=== PATIENT | male | born 1945 | race Caucasian/White ===

== ENCOUNTER 2021-07-24 19:48 | Inpatient (IN) | payer OTHER, MEDICAID ==
[~2021-07-24] VITALS: Ht 157.5 cm; Wt 60.8 kg
[~2021-07-24 19:48] MED LIST: IBU800T; PHEN-250; TYLENOL WITH COD; [UNRECOGNIZED DRUG - OTHER]
[2021-07-24 23:36] LABS: Eosinophils # (auto) 0 10 ^3/uL (0-0.8); Lymphocytes # (auto) 0.4 10 ^3/uL (0.4-5.4); Monocytes # (auto) 0.6 10 ^3/uL (0-1.3); Neutrophils # (auto) 5.8 10 ^3/uL (1.6-8.6); White Blood Cell 6.8 10^3/uL (4.4-10.8)
[2021-07-24 23:38] LABS: Basophils # (auto) 0.1 10 ^3/uL (0-0.2); Basophils % (auto) 0.7 % (0.0-2.0); Eosinophils % (auto) 0.3 % (0.0-7.0); Hematocrit 31.8 % (41.0-53.0); Lymphocytes % (auto) 5.6 % (10.0-50.0); Mean Corpuscular Hemoglobin 37.7 pg (28.0-32.0); Mean Corpuscular Hgb Conc. 34.5 g/dL (32.0-36.0); Mean Corpuscular Volume 109.5 fL (80.0-100.0); Monocytes % (auto) 8.8 % (0.0-12.0); Neutrophils % (auto) 84.6 % (37.0-80.0); Nucleated Red Blood Cells % 0.2 %; Red Cell Distribution Width 16.7 % (11.8-14.3)
[2021-07-24 23:57] LABS: Albumin 3.4 g/dL (3.4-5.0); Anion Gap 4 (5-15); BUN/Creatinine Ratio 20.4; Blood Alcohol < 3.0 mg/dL (0-5); Blood Urea Nitrogen 23 mg/dL (7-18); Calcium 8.2 mg/dL (8.5-10.1); Carbon Dioxide 35 mmol/L (21-32); Chloride 105 mmol/L (98-107); GFR African American 81 mL/min; GFR Non-African American 67 mL/min; Glucose 121 mg/dL (74-106); Magnesium 2.7 mg/dL (1.6-2.6); Potassium 5.4 mmol/L (3.5-5.1); Sodium 144 mmol/L (136-145)
[2021-07-25] VITALS (9 sets, daily range): BP systolic 76–130; BP diastolic 36–91
[2021-07-25] LABS: Alanine Aminotransferase 19 U/L (16-61); Alkaline Phosphatase 172 U/L (45-117); Aspartate Aminotransferase 23 U/L (15-37); Bilirubin, Total 0.2 mg/dL (0.2-1.0); Total Protein 7.4 g/dL (6.4-8.2)
[2021-07-25] MEDS ORDERED: ALBUTEROL SULF 2.5 MG/0.5ML(0.5%) NEB SOLN NEB ONE (00:30)
[2021-07-25] MEDS ORDERED: IPRATROPIUM BROM 0.5 MG/2.5ML INH SOL NEB ONE (00:30)
[2021-07-25] MEDS ORDERED: levoFLOXacin 750MG 150 ML IV ONE (00:30)
[2021-07-25] MEDS ORDERED: CALCIUM GLUC 1,000mg/50ml-NS 50 ML IV ONE (00:30)
[2021-07-25] MEDS ORDERED: FUROSEMIDE INJECTION 10 ML ONE (01:29)
[2021-07-25] MEDS ORDERED: FUROSEMIDE 100 MG/10ML VIAL IV ONE (01:30)
[2021-07-25] MEDS ORDERED: ONDANSETRON HCL 4 MG/2 ML VIAL IV PRN (02:00)
[2021-07-25] MEDS ORDERED: NITROGLYCERIN 0.4 MG SL TAB SL PRN (02:00)
[2021-07-25] MEDS ORDERED: MORPHINE SULFATE INJECTION 2 MG/ML SYRG IV PRN (02:00)
[2021-07-25] MEDS ORDERED: SODIUM ZIRCONIUM CYCL 10 GM PAK PO ONE (02:00)
[2021-07-25] MEDS ORDERED: ACETAMINOPHEN 325 MG TAB PO PRN (02:00)
[2021-07-25 04:13] LABS: Urine Bacteria FEW /hpf (None Seen); Urine Blood 1+ /uL (Negative); Urine Budding Yeast OCCASIONAL /hpf (None Seen); Urine Hyaline Cast MOD /lpf (0 - 2); Urine Mucus FEW (None Seen); Urine Specific Gravity 1.017 (1.001-1.035); Urine WBC 115 /hpf (0 - 3)
[2021-07-25 04:39] LABS: Alcohol, Urine < 3.0 mg/dL (0-10); Amphetamine Screen, Urine NEGATIVE (NEGATIVE); Barbiturate Scree,Urine NEGATIVE (NEGATIVE); Benzodiazephine Screen, Urine NEGATIVE (NEGATIVE); Cannabinoid Screen, Urine NEGATIVE (NEGATIVE); Cocaine Screen, Urine NEGATIVE (NEGATIVE); Opiate Scree,Urine NEGATIVE (NEGATIVE); Phencyclidine Screen, Urine NEGATIVE (NEGATIVE)
[2021-07-25] MEDS: FUROSEMIDE 20 MG/2 ML VIAL IV SCH ×2 (05:20→18:00)
[2021-07-25] MEDS: ALBUTEROL SULF 2.5 MG/0.5ML(0.5%) NEB SOLN NEB SCH ×3 (07:08→19:19)
[2021-07-25] MEDS: IPRATROPIUM BROM 0.5 MG/2.5ML INH SOL NEB PRN ×4 (07:08→19:19)
[2021-07-25] MEDS ORDERED: cefTRIAXone 1GM/50ML D5W 50 ML IV SCH (09:00)
[2021-07-25] MEDS ORDERED: HCTZ 25 MG TAB PO SCH (10:00)
[2021-07-25] MEDS ORDERED: AZITHROMYCIN 500MG/ 250ML 250 ML IV SCH (10:00)
[2021-07-25] MEDS: LORazepam 2MG/ML-1ML VIAL IV PRN ×2 (12:09→21:00)
[2021-07-25] MEDS: ASPirin 81 mg TAB PO SCH (12:09)
[2021-07-25] MEDS: CLOPIDOGREL BISULFATE 75 MG TAB PO SCH (12:10)
[2021-07-25] MEDS: ENOXAPARIN SOD 40 MG/0.4 ML SYRINGE SC SCH (12:11)
[2021-07-25] MEDS: PANTOPRAZOLE 40 MG TAB PO SCH (12:11)
[2021-07-25] MEDS: DOBUTamine 1000MCG/ML 250 ML IV SCH (18:47)
[2021-07-25] MEDS: ATORVASTATIN 20 MG TAB PO SCH (21:00)
[2021-07-25] MEDS ORDERED: methylPREDNISolone SOD SUCC 40 MG/ML VL IV ONE (21:45)
[2021-07-26] VITALS (7 sets, daily range): BP systolic 76–146; BP diastolic 44–71
[2021-07-26 05:01] LABS: Basophils # (auto) 0 10 ^3/uL (0-0.2); Eosinophils # (auto) 0 10 ^3/uL (0-0.8); Hematocrit 27.2 % (41.0-53.0); Hemoglobin 9.7 g/dL (13.5-17.5); Lymphocytes # (auto) 0.2 10 ^3/uL (0.4-5.4); Lymphocytes % (auto) 1.8 % (10.0-50.0); Mean Corpuscular Hemoglobin 39.1 pg (28.0-32.0); Mean Corpuscular Hgb Conc. 35.6 g/dL (32.0-36.0); Mean Corpuscular Volume 109.9 fL (80.0-100.0); Monocytes # (auto) 0.8 10 ^3/uL (0-1.3); Monocytes % (auto) 7.9 % (0.0-12.0); Neutrophils # (auto) 9.3 10 ^3/uL (1.6-8.6); Neutrophils % (auto) 90.3 % (37.0-80.0); Red Blood Cells 2.48 10^6/uL (4.5-5.90); Red Cell Distribution Width 16.7 % (11.8-14.3); White Blood Cell 10.3 10^3/uL (4.4-10.8)
[2021-07-26] MEDS: ALBUTEROL SULF 2.5 MG/0.5ML(0.5%) NEB SOLN NEB SCH ×2 (05:57→12:34)
[2021-07-26] MEDS: FUROSEMIDE 20 MG/2 ML VIAL IV SCH ×2 (06:00→18:39)
[2021-07-26] MEDS: DOBUTamine 1000MCG/ML 250 ML IV SCH ×2 (06:27→19:29)
[2021-07-26] MEDS: ASPirin 81 mg TAB PO SCH (09:52)
[2021-07-26] MEDS: CLOPIDOGREL BISULFATE 75 MG TAB PO SCH (09:52)
[2021-07-26] MEDS: ENOXAPARIN SOD 40 MG/0.4 ML SYRINGE SC SCH (09:52)
[2021-07-26] MEDS: PANTOPRAZOLE 40 MG TAB PO SCH (09:52)
[2021-07-26] MEDS: methylPREDNISolone SOD SUCC 40 MG/ML VL IV SCH (09:52)
[2021-07-26 11:19] LABS: Anion Gap 3 (5-15); BUN/Creatinine Ratio 16.9; Blood Urea Nitrogen 43 mg/dL (7-18); Calcium 7.5 mg/dL (8.5-10.1); Carbon Dioxide 35 mmol/L (21-32); Chloride 103 mmol/L (98-107); GFR African American 32 mL/min; GFR Non-African American 26 mL/min; Glucose 119 mg/dL (74-106); Potassium 4.9 mmol/L (3.5-5.1); Sodium 141 mmol/L (136-145)
[2021-07-26] MEDS ORDERED: TPN PER PHARMACY 0 ML IV SCH (11:30)
[2021-07-26 13:50] LABS: Magnesium 2.1 mg/dL (1.6-2.6); Phosphorus 5.2 mg/dL (2.5-4.90)
[2021-07-26] MEDS ORDERED: DEXTROSE (50%) 50ML SYRG IV SCH (14:15)
[2021-07-26] MEDS ORDERED: LORazepam 2MG/ML-1ML VIAL IV PRN (15:30)
[2021-07-26] MEDS: ACCU-CHEK COMFORT CURVE STRIP VI SCH (18:00)
[2021-07-26] MEDS: InsuLIN REG 1unit/0.01ml Soln (100units/ml) SC SCH (18:00)
[2021-07-26] MEDS ORDERED: SODIUM CHLORIDE 0.9% 1,000 ML IV ONE (19:45)
[2021-07-26] MEDS ORDERED: PIPERACILLIN-TAZOB 2.25GM 50 ML IV ONE (20:00)
[2021-07-26] MEDS: AMINO ACID INFUSION IN D10W 1,000 ML IV NR (20:17)
[2021-07-26] MEDS: ATORVASTATIN 20 MG TAB PO SCH (22:25)
[2021-07-27] MEDS: InsuLIN REG 1unit/0.01ml Soln (100units/ml) SC SCH ×4 (00:33→17:34)
[2021-07-27] MEDS: PIPERACILLIN-TAZOB 2.25GM 50 ML IV SCH ×4 (02:09→20:38)
[2021-07-27 05:00] VITALS: BP 123/47
[2021-07-27] MEDS: ACCU-CHEK COMFORT CURVE STRIP VI SCH ×4 (06:04→17:34)
[2021-07-27 06:29] LABS: Albumin 2.3 g/dL (3.4-5.0); BUN/Creatinine Ratio 21.6; Calcium 7.4 mg/dL (8.5-10.1); Magnesium 2.2 mg/dL (1.6-2.6); Potassium 4.1 mmol/L (3.5-5.1)
[2021-07-27 06:32] LABS: Bilirubin, Total 0.3 mg/dL (0.2-1.0); Total Protein 5.7 g/dL (6.4-8.2)
[2021-07-27] MEDS: ALBUTEROL SULF 2.5 MG/0.5ML(0.5%) NEB SOLN NEB SCH ×3 (06:38→18:14)
[2021-07-27 09:00] VITALS: BP 110/56
[2021-07-27] MEDS: methylPREDNISolone SOD SUCC 40 MG/ML VL IV SCH (10:16)
[2021-07-27] MEDS: ENOXAPARIN SOD 30 MG/0.3 ML SYRINGE SC SCH (10:16)
[2021-07-27] MEDS: LINEZOLID 600MG/300ML 300 ML IV SCH ×2 (11:14→22:58)
[2021-07-27 13:00] VITALS: BP 121/57
[2021-07-27] MEDS: FUROSEMIDE 20 MG/2 ML VIAL IV SCH ×2 (14:30→18:00)
[2021-07-27 17:00] VITALS: BP 114/40
[2021-07-27] MEDS ORDERED: FUROSEMIDE 20 MG/2 ML VIAL IV SCH (18:00)
[2021-07-27] MEDS: IPRATROPIUM BROM 0.5 MG/2.5ML INH SOL NEB PRN (18:16)
[2021-07-27] MEDS: AMINO ACID INFUSION IN D10W 1,000 ML IV NR (19:49)
[2021-07-27] MEDS ORDERED: PPN PER PHARMACY IV NR ×9 (20:00)
[2021-07-27 22:00] VITALS: BP 132/44
[2021-07-27] MEDS: ATORVASTATIN 20 MG TAB PO SCH (22:09)
[2021-07-28] VITALS (9 sets, daily range): BP systolic 76–126; BP diastolic 29–62
[2021-07-28] MEDS: InsuLIN REG 1unit/0.01ml Soln (100units/ml) SC SCH ×4 (00:14→18:32)
[2021-07-28] MEDS: ACCU-CHEK COMFORT CURVE STRIP VI SCH ×4 (00:14→18:32)
[2021-07-28] MEDS: PIPERACILLIN-TAZOB 2.25GM 50 ML IV SCH ×4 (02:05→22:30)
[2021-07-28] MEDS: FUROSEMIDE 20 MG/2 ML VIAL IV SCH ×2 (06:20→18:41)
[2021-07-28] MEDS: IPRATROPIUM BROM 0.5 MG/2.5ML INH SOL NEB PRN ×3 (06:28→18:34)
[2021-07-28] MEDS: ALBUTEROL SULF 2.5 MG/0.5ML(0.5%) NEB SOLN NEB SCH ×3 (06:28→18:34)
[2021-07-28 06:36] LABS: Albumin 2.2 g/dL (3.4-5.0); Calcium 7.5 mg/dL (8.5-10.1); Potassium 3.6 mmol/L (3.5-5.1)
[2021-07-28 06:40] LABS: BUN/Creatinine Ratio 25.4; Bilirubin, Total 0.5 mg/dL (0.2-1.0); Phosphorus 1.9 mg/dL (2.5-4.90); Total Protein 5.8 g/dL (6.4-8.2)
[2021-07-28] MEDS: ENOXAPARIN SOD 30 MG/0.3 ML SYRINGE SC SCH (09:30)
[2021-07-28] MEDS: methylPREDNISolone SOD SUCC 40 MG/ML VL IV SCH (09:31)
[2021-07-28] MEDS: LINEZOLID 600MG/300ML 300 ML IV SCH (09:32)
[2021-07-28] MEDS ORDERED: POTASSIUM PHOSPHATE 22 MEQ in SODIUM CHL 0.9% 100 ML IV ONE (10:30)
[2021-07-28] MEDS ORDERED: PPN PER PHARMACY IV NR ×8 (20:00)
[2021-07-28] MEDS: ATORVASTATIN 20 MG TAB PO SCH (22:30)
[2021-07-29] VITALS (8 sets, daily range): BP systolic 76–136; BP diastolic 44–72
[2021-07-29] MEDS: HYDROcodone-ACET 5/325MG TAB PO PRN ×2 (03:41→15:08)
[2021-07-29] MEDS: PIPERACILLIN-TAZOB 2.25GM 50 ML IV SCH ×4 (03:42→21:01)
[2021-07-29] MEDS: ACCU-CHEK COMFORT CURVE STRIP VI SCH ×5 (06:00→23:56)
[2021-07-29] MEDS: InsuLIN REG 1unit/0.01ml Soln (100units/ml) SC SCH ×5 (06:00→23:57)
[2021-07-29 06:10] LABS: Albumin 2.2 g/dL (3.4-5.0); BUN/Creatinine Ratio 30.6; Calcium 7.8 mg/dL (8.5-10.1); Magnesium 2.2 mg/dL (1.6-2.6); Phosphorus 3.3 mg/dL (2.5-4.90); Potassium 3.7 mmol/L (3.5-5.1)
[2021-07-29] MEDS: ALBUTEROL SULF 2.5 MG/0.5ML(0.5%) NEB SOLN NEB SCH ×3 (06:48→19:18)
[2021-07-29] MEDS: FUROSEMIDE 20 MG/2 ML VIAL IV SCH ×2 (07:26→18:53)
[2021-07-29] MEDS: ENOXAPARIN SOD 30 MG/0.3 ML SYRINGE SC SCH (10:01)
[2021-07-29] MEDS: methylPREDNISolone SOD SUCC 40 MG/ML VL IV SCH (10:01)
[2021-07-29] MEDS: IPRATROPIUM BROM 0.5 MG/2.5ML INH SOL NEB PRN (19:18)
[2021-07-29] MEDS ORDERED: PPN PER PHARMACY IV NR ×10 (20:00)
[2021-07-29] MEDS: LACTULOSE 20Gm/30ML SOLN PO SCH (22:26)
[2021-07-29] MEDS: ATORVASTATIN 20 MG TAB PO SCH (22:27)
[2021-07-29] MEDS: DOCUSATE SOD 100 MG CAP PO SCH (22:27)
[2021-07-30] MEDS: PIPERACILLIN-TAZOB 2.25GM 50 ML IV SCH ×4 (02:28→20:20)
[2021-07-30 05:00] VITALS: BP 135/83
[2021-07-30] MEDS: ACCU-CHEK COMFORT CURVE STRIP VI SCH ×3 (05:47→18:18)
[2021-07-30] MEDS: InsuLIN REG 1unit/0.01ml Soln (100units/ml) SC SCH ×3 (05:51→18:00)
[2021-07-30] MEDS: FUROSEMIDE 20 MG/2 ML VIAL IV SCH ×2 (05:53→18:00)
[2021-07-30 06:30] LABS: Potassium 3.9 mmol/L (3.5-5.1)
[2021-07-30] MEDS: ALBUTEROL SULF 2.5 MG/0.5ML(0.5%) NEB SOLN NEB SCH ×3 (06:35→18:00)
[2021-07-30 06:37] LABS: Albumin 2.1 g/dL (3.4-5.0); BUN/Creatinine Ratio 35.1; Magnesium 2.1 mg/dL (1.6-2.6); Phosphorus 3.7 mg/dL (2.5-4.90)
[2021-07-30 09:00] VITALS: BP 160/73
[2021-07-30] MEDS: LACTULOSE 20Gm/30ML SOLN PO SCH ×2 (10:00→22:00)
[2021-07-30] MEDS: DOCUSATE SOD 100 MG CAP PO SCH ×2 (10:00→22:00)
[2021-07-30] MEDS: ENOXAPARIN SOD 30 MG/0.3 ML SYRINGE SC SCH (10:37)
[2021-07-30] MEDS: methylPREDNISolone SOD SUCC 40 MG/ML VL IV SCH (10:37)
[2021-07-30 13:00] VITALS: BP 125/66
[2021-07-30 17:00] VITALS: BP 106/50
[2021-07-30] MEDS ORDERED: PPN PER PHARMACY IV NR ×10 (20:00)
[2021-07-30] MEDS: IPRATROPIUM BROM 0.5 MG/2.5ML INH SOL NEB PRN (20:34)
[2021-07-30 22:00] VITALS: BP 113/86
[2021-07-30] MEDS: ATORVASTATIN 20 MG TAB PO SCH (22:00)
[2021-07-31] MEDS: ACCU-CHEK COMFORT CURVE STRIP VI SCH ×3 (00:43→17:33)
[2021-07-31] MEDS: InsuLIN REG 1unit/0.01ml Soln (100units/ml) SC SCH ×3 (00:47→17:34)
[2021-07-31] MEDS: HYDROcodone-ACET 5/325MG TAB PO PRN (00:57)
[2021-07-31] MEDS: PIPERACILLIN-TAZOB 2.25GM 50 ML IV SCH ×3 (02:22→17:14)
[2021-07-31 05:00] VITALS: BP 134/55
[2021-07-31] MEDS: IPRATROPIUM BROM 0.5 MG/2.5ML INH SOL NEB PRN ×3 (06:00→18:45)
[2021-07-31] MEDS: ALBUTEROL SULF 2.5 MG/0.5ML(0.5%) NEB SOLN NEB SCH ×3 (06:00→18:45)
[2021-07-31 06:26] LABS: Lymphocytes # (auto) 0.2 10 ^3/uL (0.4-5.4)
[2021-07-31 06:28] LABS: Basophils # (auto) 0 10 ^3/uL (0-0.2); Basophils % (auto) 0.6 % (0.0-2.0); Eosinophils # (auto) 0.1 10 ^3/uL (0-0.8); Eosinophils % (auto) 1.8 % (0.0-7.0); Lymphocytes % (auto) 2.2 % (10.0-50.0); Monocytes # (auto) 0.9 10 ^3/uL (0-1.3); Neutrophils # (auto) 6.5 10 ^3/uL (1.6-8.6); Neutrophils % (auto) 83.4 % (37.0-80.0); Nucleated Red Blood Cells % 0.1 %; White Blood Cell 7.8 10^3/uL (4.4-10.8)
[2021-07-31 06:37] LABS: Calcium 8.3 mg/dL (8.5-10.1); Magnesium 2.6 mg/dL (1.6-2.6); Potassium 3.5 mmol/L (3.5-5.1)
[2021-07-31] MEDS: FUROSEMIDE 20 MG/2 ML VIAL IV SCH (06:38)
[2021-07-31 06:40] LABS: BUN/Creatinine Ratio 39.3; Bilirubin, Total 0.5 mg/dL (0.2-1.0); Phosphorus 4.7 mg/dL (2.5-4.90); Total Protein 6.3 g/dL (6.4-8.2)
[2021-07-31 06:44] LABS: Hematocrit 24.8 % (41.0-53.0); Hemoglobin 8.8 g/dL (13.5-17.5); Mean Corpuscular Hemoglobin 37.8 pg (28.0-32.0); Mean Corpuscular Hgb Conc. 35.6 g/dL (32.0-36.0); Mean Corpuscular Volume 106.2 fL (80.0-100.0); Red Blood Cells 2.34 10^6/uL (4.5-5.90); Red Cell Distribution Width 16.2 % (11.8-14.3)
[2021-07-31 08:00] VITALS: BP 155/75
[2021-07-31] MEDS ORDERED: POTASSIUM CHL 20MEQ/100ML 100 ML IV ONE (09:00)
[2021-07-31] MEDS: LACTULOSE 20Gm/30ML SOLN PO SCH (09:08)
[2021-07-31] MEDS: DOCUSATE SOD 100 MG CAP PO SCH ×2 (09:08→22:00)
[2021-07-31] MEDS: methylPREDNISolone SOD SUCC 40 MG/ML VL IV SCH (09:25)
[2021-07-31] MEDS: ENOXAPARIN SOD 30 MG/0.3 ML SYRINGE SC SCH (09:25)
[2021-07-31] MEDS ORDERED: LORazepam 2MG/ML-1ML VIAL IV PRN ×2 (11:30)
[2021-07-31] MEDS ORDERED: MORPHINE SULFATE INJECTION 2 MG/ML SYRG IV PRN (11:30)
[2021-07-31 12:00] VITALS: BP 141/67
[2021-07-31] MEDS ORDERED: TPN PER PHARMACY 0 ML IV SCH (13:00)
[2021-07-31] MEDS ORDERED: LACTULOSE 20Gm/30ML SOLN PO PRN (13:00)
[2021-07-31 16:00] VITALS: BP 125/70
[2021-07-31 16:48] VITALS: BP 125/70
[2021-07-31] MEDS ORDERED: DEXTROSE (50%) 50ML SYRG IV SCH (18:00)
[2021-07-31] MEDS ORDERED: PPN PER PHARMACY IV NR ×18 (20:00)
[2021-07-31 22:00] VITALS: BP 141/67
[2021-07-31] MEDS: ATORVASTATIN 20 MG TAB PO SCH (22:00)
[2021-08-01] MEDS: ACCU-CHEK COMFORT CURVE STRIP VI SCH ×5 (00:20→23:24)
[2021-08-01] MEDS: PIPERACILLIN-TAZOB 2.25GM 50 ML IV SCH ×5 (00:20→23:26)
[2021-08-01 05:00] VITALS: BP 139/63
[2021-08-01] MEDS: FUROSEMIDE 40 MG/4 ML VIAL IV SCH ×2 (06:23→17:24)
[2021-08-01 06:33] LABS: Potassium 3.7 mmol/L (3.5-5.1)
[2021-08-01] MEDS: InsuLIN REG 1unit/0.01ml Soln (100units/ml) SC SCH ×5 (06:36→23:23)
[2021-08-01 06:44] LABS: BUN/Creatinine Ratio 43.9; Bilirubin, Total 0.3 mg/dL (0.2-1.0); Calcium 7.9 mg/dL (8.5-10.1); Magnesium 2.6 mg/dL (1.6-2.6); Phosphorus 3.3 mg/dL (2.5-4.90); Total Protein 6.3 g/dL (6.4-8.2)
[2021-08-01 07:09] LABS: Eosinophils # (auto) 0.3 10 ^3/uL (0-0.8); Lymphocytes # (auto) 0.2 10 ^3/uL (0.4-5.4); Monocytes # (auto) 1.1 10 ^3/uL (0-1.3)
[2021-08-01 07:11] LABS: Basophils # (auto) 0.1 10 ^3/uL (0-0.2); Basophils % (auto) 1.3 % (0.0-2.0); Eosinophils % (auto) 3.4 % (0.0-7.0); Hematocrit 24.1 % (41.0-53.0); Hemoglobin 8.4 g/dL (13.5-17.5); Lymphocytes % (auto) 2.4 % (10.0-50.0); Mean Corpuscular Hemoglobin 32.8 pg (28.0-32.0); Mean Corpuscular Hgb Conc. 34.7 g/dL (32.0-36.0); Mean Corpuscular Volume 94.5 fL (80.0-100.0); Monocytes % (auto) 13.4 % (0.0-12.0); Neutrophils # (auto) 6.4 10 ^3/uL (1.6-8.6); Neutrophils % (auto) 79.5 % (37.0-80.0); Nucleated Red Blood Cells % 0.2 %; Red Blood Cells 2.55 10^6/uL (4.5-5.90); Red Cell Distribution Width 16.2 % (11.8-14.3); White Blood Cell 8.1 10^3/uL (4.4-10.8)
[2021-08-01 09:00] VITALS: BP 130/56
[2021-08-01] MEDS: DOCUSATE SOD 100 MG CAP PO SCH ×2 (10:11→21:14)
[2021-08-01] MEDS: ENOXAPARIN SOD 30 MG/0.3 ML SYRINGE SC SCH (10:11)
[2021-08-01] MEDS: MORPHINE SULFATE INJECTION 2 MG/ML SYRG IV PRN (10:24)
[2021-08-01 13:00] VITALS: BP 138/58
[2021-08-01 18:02] VITALS: BP 133/59
[2021-08-01] MEDS: ALBUTEROL SULF 2.5 MG/0.5ML(0.5%) NEB SOLN NEB SCH (18:29)
[2021-08-01] MEDS: IPRATROPIUM BROM 0.5 MG/2.5ML INH SOL NEB PRN (18:29)
[2021-08-01] MEDS ORDERED: PPN PER PHARMACY IV NR ×10 (20:00)
[2021-08-01] MEDS: ATORVASTATIN 20 MG TAB PO SCH (21:33)
[2021-08-01 22:00] VITALS: BP 121/44
[2021-08-02] MEDS: MORPHINE SULFATE INJECTION 2 MG/ML SYRG IV PRN ×4 (00:27→22:13)
[2021-08-02 05:00] VITALS: BP 121/58
[2021-08-02] MEDS: FUROSEMIDE 40 MG/4 ML VIAL IV SCH ×2 (05:29→18:00)
[2021-08-02] MEDS: PIPERACILLIN-TAZOB 2.25GM 50 ML IV SCH ×4 (05:30→23:24)
[2021-08-02] MEDS: ACCU-CHEK COMFORT CURVE STRIP VI SCH ×4 (05:32→23:20)
[2021-08-02] MEDS: ALBUTEROL SULF 2.5 MG/0.5ML(0.5%) NEB SOLN NEB SCH ×3 (05:59→18:33)
[2021-08-02 06:13] LABS: Potassium 3.9 mmol/L (3.5-5.1)
[2021-08-02] MEDS: InsuLIN REG 1unit/0.01ml Soln (100units/ml) SC SCH ×4 (06:16→23:19)
[2021-08-02 06:21] LABS: BUN/Creatinine Ratio 42.7; Bilirubin, Total 0.4 mg/dL (0.2-1.0); Calcium 7.9 mg/dL (8.5-10.1); Magnesium 2.2 mg/dL (1.6-2.6); Phosphorus 2.6 mg/dL (2.5-4.90); Total Protein 6.2 g/dL (6.4-8.2)
[2021-08-02 06:49] LABS: Eosinophils # (auto) 0.3 10 ^3/uL (0-0.8); Lymphocytes # (auto) 0.2 10 ^3/uL (0.4-5.4); Lymphocytes % (auto) 2.3 % (10.0-50.0); Nucleated Red Blood Cells % 0.2 %; Red Blood Cells 2.54 10^6/uL (4.5-5.90)
[2021-08-02 06:50] LABS: Basophils # (auto) 0.1 10 ^3/uL (0-0.2); Basophils % (auto) 0.9 % (0.0-2.0); Eosinophils % (auto) 4.1 % (0.0-7.0); Hematocrit 24.2 % (41.0-53.0); Hemoglobin 8.3 g/dL (13.5-17.5); Mean Corpuscular Hemoglobin 32.8 pg (28.0-32.0); Mean Corpuscular Hgb Conc. 34.3 g/dL (32.0-36.0); Mean Corpuscular Volume 95.5 fL (80.0-100.0); Monocytes # (auto) 0.9 10 ^3/uL (0-1.3); Monocytes % (auto) 13.3 % (0.0-12.0); Neutrophils # (auto) 5.4 10 ^3/uL (1.6-8.6); Neutrophils % (auto) 79.4 % (37.0-80.0); Red Cell Distribution Width 15.5 % (11.8-14.3); White Blood Cell 6.8 10^3/uL (4.4-10.8)
[2021-08-02 09:00] VITALS: BP 136/54
[2021-08-02] MEDS: DOCUSATE SOD 100 MG CAP PO SCH ×2 (09:16→19:45)
[2021-08-02] MEDS: ENOXAPARIN SOD 30 MG/0.3 ML SYRINGE SC SCH (10:39)
[2021-08-02] MEDS ORDERED: TPN PER PHARMACY 0 ML IV SCH (12:00)
[2021-08-02 12:54] VITALS: BP 114/57
[2021-08-02] MEDS: IPRATROPIUM BROM 0.5 MG/2.5ML INH SOL NEB PRN (18:33)
[2021-08-02] MEDS ORDERED: PPN PER PHARMACY IV NR ×10 (20:00)
[2021-08-02] MEDS: ATORVASTATIN 20 MG TAB PO SCH (20:01)
[2021-08-02 21:30] VITALS: BP 113/84
[2021-08-03 05:00] VITALS: BP 135/65
[2021-08-03] MEDS: PIPERACILLIN-TAZOB 2.25GM 50 ML IV SCH ×4 (05:16→17:14)
[2021-08-03] MEDS: MORPHINE SULFATE INJECTION 2 MG/ML SYRG IV PRN ×2 (05:17→16:52)
[2021-08-03] MEDS: FUROSEMIDE 40 MG/4 ML VIAL IV SCH (05:18)
[2021-08-03] MEDS: ACCU-CHEK COMFORT CURVE STRIP VI SCH ×2 (05:25→13:00)
[2021-08-03] MEDS: InsuLIN REG 1unit/0.01ml Soln (100units/ml) SC SCH ×2 (05:42→12:00)
[2021-08-03 06:03] LABS: Magnesium 2.4 mg/dL (1.6-2.6); Potassium 4.2 mmol/L (3.5-5.1)
[2021-08-03 06:11] LABS: Albumin 2.1 g/dL (3.4-5.0); BUN/Creatinine Ratio 45.3; Bilirubin, Total 0.4 mg/dL (0.2-1.0); Calcium 8.5 mg/dL (8.5-10.1); Phosphorus 4.6 mg/dL (2.5-4.90); Total Protein 6.8 g/dL (6.4-8.2)
[2021-08-03] MEDS: IPRATROPIUM BROM 0.5 MG/2.5ML INH SOL NEB PRN ×2 (06:28→11:08)
[2021-08-03] MEDS: ALBUTEROL SULF 2.5 MG/0.5ML(0.5%) NEB SOLN NEB SCH ×2 (06:28→11:08)
[2021-08-03 06:32] LABS: Basophils # (auto) 0.1 10 ^3/uL (0-0.2); Basophils % (auto) 1.2 % (0.0-2.0); Eosinophils # (auto) 0.1 10 ^3/uL (0-0.8); Eosinophils % (auto) 0.8 % (0.0-7.0); Hematocrit 28.4 % (41.0-53.0); Hemoglobin 9.5 g/dL (13.5-17.5); Lymphocytes # (auto) 0.2 10 ^3/uL (0.4-5.4); Lymphocytes % (auto) 1.9 % (10.0-50.0); Mean Corpuscular Hemoglobin 32.1 pg (28.0-32.0); Mean Corpuscular Hgb Conc. 33.5 g/dL (32.0-36.0); Mean Corpuscular Volume 95.7 fL (80.0-100.0); Monocytes # (auto) 0.8 10 ^3/uL (0-1.3); Monocytes % (auto) 7.6 % (0.0-12.0); Neutrophils # (auto) 9.2 10 ^3/uL (1.6-8.6); Neutrophils % (auto) 88.5 % (37.0-80.0); Nucleated Red Blood Cells % 0.2 %; Red Blood Cells 2.97 10^6/uL (4.5-5.90); Red Cell Distribution Width 15.9 % (11.8-14.3); White Blood Cell 10.4 10^3/uL (4.4-10.8)
[2021-08-03 08:47] VITALS: BP 128/69
[2021-08-03] MEDS: DOCUSATE SOD 100 MG CAP PO SCH (10:00)
[2021-08-03 12:52] VITALS: BP 123/68
[2021-08-03] MEDS: ENOXAPARIN SOD 30 MG/0.3 ML SYRINGE SC SCH (12:59)
[2021-08-03] MEDS ORDERED: LORazepam 2MG/ML-1ML VIAL IV PRN (15:45)
[2021-08-03 16:30] VITALS: BP 111/59
[2021-08-03 16:52] VITALS: BP 111/59
[2021-08-03] MEDS ORDERED: PPN PER PHARMACY IV NR ×8 (20:00)
== END 2021-08-03 22:22 | DRG 177 ==
LOC: EDBD 19:48 → ER 19:51 → TELE 07-25 01:49 → TELE-WESTW 07-25 08:51
PROVIDERS: ADMIT Nurse Practitioner; ATTEND Internal Medicine Pulmonary Disease
PROC: 5A0935A Assistance with Respiratory Ventilation, Less than 24 Consecutive Hours, High Flow/Velocity Cannula (ICD-10-PCS; 2021-07-25)
PROC: 5A09557 Assistance with Respiratory Ventilation, Greater than 96 Consecutive Hours, Continuous Positive Airway Pressure (ICD-10-PCS; 2021-07-25)
PROC: 05H933Z Insertion of Infusion Device into Right Brachial Vein, Percutaneous Approach (ICD-10-PCS; principal; 2021-07-30)
PROC: B54MZZA Ultrasonography of Right Upper Extremity Veins, Guidance (ICD-10-PCS; 2021-07-30)
DX: J69.0 Pneumonitis due to inhalation of food and vomit (principal); I50.33 Acute on chronic diastolic (congestive) heart failure; J96.21 Acute and chronic respiratory failure with hypoxia; J96.22 Acute and chronic respiratory failure with hypercapnia; R78.81 Bacteremia; N17.9 Acute kidney failure, unspecified; J44.1 Chronic obstructive pulmonary disease with (acute) exacerbation; E87.4 Mixed disorder of acid-base balance; J44.0 Chronic obstructive pulmonary disease with (acute) lower respiratory infection; J98.11 Atelectasis; R47.01 Aphasia; Z66 Do not resuscitate; Z20.822 Contact with and (suspected) exposure to COVID-19; I11.0 Hypertensive heart disease with heart failure; I95.9 Hypotension, unspecified; E87.5 Hyperkalemia; D64.9 Anemia, unspecified; I25.9 Chronic ischemic heart disease, unspecified; R62.7 Adult failure to thrive; Z74.01 Bed confinement status; Z99.3 Dependence on wheelchair; I69.398 Other sequelae of cerebral infarction; Z68.25 Body mass index [BMI] 25.0-25.9, adult; I25.2 Old myocardial infarction
CPT/HCPCS: 36415; 36600; 70450; 71045; 80048; 80053; 80069; 80307; 80320; 81001; 82805; 82962; 83605; 83735; 83880; 84100; 84478; 84484; 85025; 85379; 87040; 87077; 93005; 93306; 93970; 94640; 94660; 96365; 96368; 96375; 99291; G0378; J0696; J1815; J1956; J2543; J7131